=== PATIENT | male | born 1990 | race Two or more races ===

== ENCOUNTER 2020-05-25 19:34 | Emergency (ER) | payer OTHER ==
[~2020-05-25] VITALS: Ht 185.4 cm; Wt 93.0 kg
--- NOTE | 2020-05-25 19:52 | NUR ---
Nurse Note: Pt walked in c/o LT knee pain s/p playing soccer 05/25 around 1800. Pt stated 9/10 pain, with movement. Pt stated he heard a cracking noise on impact. Skin intact. Pt appiled icy-hot but not effective. Pt stated no sensation felt below knee. Pt able to move ankle and toes. Pedial pulses felt on LT foot. Applied ice pack on knee at bedside. All safety measures met; will continue to montior.
--- NOTE | 2020-05-25 19:53 | Emergency Room Report ---
History of Present Illness General Chief Complaint: Lower Extremity Injury Source: Patient Present Illness HPI Disclaimer: Please note that this report is being documented using NimbitON technology. This can lead to erroneous entry secondary to incorrect interpretation by the dictating instrument. HPI: 29-year-old male presents for evaluation of left knee left knee pain. Patient collided with other players while playing soccer heard a popping sensation as he went down to the ground. Pain is located over the medial aspect of the left knee. Unable to bear weight. He arrives with crutches. Denies pain in the ankle, foot or hip. No other injuries reported. Prior history of left tibia surgical repair. Has not taken any medication prior to arrival. 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 EOMI. Resp: Normal work of breathing Skin: Intact. No abrasions, laceration or rash over the exposed skin MSK: Normal tone and bulk. Moving all extremities. No obvious deformity. Patella in anatomic position. Tender palpation over the medial aspect of the left knee without significant edema. No overlying skin changes. No tenderness over the lateral aspect. Significant pain elicited with valgus and varus stressing. Unable to perform Argelia test due to patient discomfort. No popliteal mass. 2+ PT and DP pulses distally. Full range of motion in the ankle and foot. No tenderness over the medial or lateral malleoli. Neuro: Awake and alert. Mentating appropriately. Sensation intact over the lower extremity bilaterally. Medical Decision Making Diagnostic Impression: Primary Impression: Knee pain ER Course 29-year-old male presents for evaluation of left knee pain after an injury playing soccer. Concern for fracture, dislocation, ligamentous strain, ligamentous sprain, meniscal injury. Patient is neurovascularly intact. X-rays do not show acute bony injury. Patient was placed in a knee immobilizer. Concern for ligamentous or meniscal injury. Patient will follow up with orthopedic surgery for advanced imaging and further work-up as needed. Prescribed pain medication and provided with crutches that are his size. Stable for outpatient follow-up. Instructed to return with new or worsening symptoms. Other X-Ray Diagnostic Results Other X-Ray Diagnostic Results : X-Ray ordered: Left knee # of Views/Limited Vs Complete: 2 View Indication: Pain EP Interpretation: Yes Interpretation: no dislocation, no soft tissue swelling, no fractures Impression: No acute disease Electronically Signed by: Electronically signed by Dr. Alfa Cooney MD Last Vital Signs Date Time Temp Pulse Resp B/P (MAP) Pulse Ox O2 Delivery O2 Flow Rate FiO2 05/25/20 19:38 98.1 87 16 114/66 (82) 98 Room Air Disposition: HOME, SELF-CARE Condition: Stable Scripts Hydrocodone Bit/Acetaminophen 5-325* (NORCO 5-325 TABLET*) 1 Each Tablet 1 TAB ORAL Q6H PRN for FOR PAIN, #10 TAB 0 Refills Prov: Alfa Cooney MD 05/25/20 Ibuprofen* (MOTRIN*) 600 Mg Tablet 600 MG ORAL Q6H PRN for For Pain, #30 TAB 0 Refills Prov: Alfa Cooney MD 05/25/20 Alfa Cooney MD May 25, 2020 19:53
[2020-05-25] MEDS ORDERED: Morphine Sulfate 2mg/ml Inj(IV/IM USE ONLY) IVP ONE (20:00)
--- NOTE | 2020-05-25 20:03 | NUR ---
Nurse Note: radiology at bedside.
--- NOTE | 2020-05-25 20:40 | NUR ---
ED Nurse Note: patient placed in knee immobilizer and instructed on how to use crutches with pt return demonstration.
[2020-05-25] MEDS ORDERED: IBUPROFEN600 M1 ORAL (20:41)
[2020-05-25] MEDS ORDERED: NORCO 5-325 TA1 EAC1 ORAL (20:41)
--- NOTE | 2020-05-25 20:42 | Diagnostic Imaging Report ---
EXAM: XR Left Knee, 3 Views CLINICAL HISTORY: INJ TECHNIQUE: Three views of the left knee. COMPARISON: No relevant prior studies available. FINDINGS: Negative for acute fracture or dislocation. Lucent defects distal tibia and proximal fibula likely from prior ACL repair. Consider MRI for evaluation of the soft tissue structures.
[2020-05-25 21:00] VITALS: BP 115/70
--- NOTE | 2020-05-25 21:00 | NUR ---
ER DISCHARGE NOTE: Patient is cleared to be discharged per ERMD, pt is aox4, on room air, with stable vital signs. pt was given dc and prescription instructions, pt was able to verbalize understanding, pt id band removed. pt is able to ambulate with steady gait. pt took all belongings.
== END 2020-05-25 21:00 | disposition home or self-care (01) ==
LOC: EMR 20:30
DX: M25.562 Pain in left knee (principal)
CPT/HCPCS: 73562; 96374; 99283; J2270

== ENCOUNTER 2020-06-01 10:41 | Emergency (ER) | payer OTHER ==
[~2020-06-01] VITALS: Ht 182.9 cm; Wt 87.5 kg
[~2020-06-01 10:41] MED LIST: IBUPROFEN600 M1 ORAL; NORCO 5-325 TA1 EAC1 ORAL
[2020-06-01 10:59] VITALS: BP 116/72
--- NOTE | 2020-06-01 10:59 | NUR ---
ED Nurse Note: Pt walked in to ED from home c/o mid sternal pressure x few months. Per pt, he has been eating meat for [employer] holiday. Pt has been taking Omeprazole. Denies n/v/d. Afebrile. No SOB, on room air. ERMD at bedside.
[2020-06-01] MEDS ORDERED: PRILOSEC OTC20 MG ORAL (11:22)
[2020-06-01 11:29] VITALS: BP 121/72
--- NOTE | 2020-06-01 11:29 | NUR ---
ED Nurse Note: Pt cleared by ERMD for discharge. DC instructions/prescription was given and explained to pt and verbalized understanding of teachings. All medical deviecs such as ID band removed. Pt is AAO x4, ambulatory and left with all personal belongings.
[2020-06-01] MEDS ORDERED: Mylanta II UD 30ml ORAL ONE (11:30)
[2020-06-01] MEDS ORDERED: Lidocaine 2% Visc 15ml soln ORAL ONE (11:30)
[2020-06-01] MEDS ORDERED: Dicyclomine HCl 10mg/5ml oral soln ORAL ONE (11:30)
--- NOTE | 2020-06-01 14:39 | Emergency Room Report ---
History of Present Illness General Chief Complaint: General Complaint Source: Patient Present Illness HPI Disclaimer: Please note that this report is being documented using PostachioON technology. This can lead to erroneous entry secondary to incorrect interpretation by the dictating instrument. HPI: This is a 29-year-old male presents with epigastric and mid chest discomfort. Symptoms chronic over the past month. No nausea no vomiting. He has a history of GERD. He states he has been eating a lot of meat recently. He frequently gets an acid taste in his mouth. He has not followed up with his primary doctor or GI for this issue. He currently takes Prilosec i ntermittently. Allergies: Coded Allergies: No Known Allergies (Unverified , 05/25/20) COVID-19 Screening Contact w/high risk pt: No Experienced COVID-19 symptoms?: No COVID-19 Testing performed MANAGER TRADE: No Patient History Reviewed Nursing Documentation: PMH: Agreed; PSxH: Agreed Nursing Documentation-PMH Past Medical History: No History, Except For Review of Systems All Other Systems: negative except mentioned in HPI Physical Exam Vital Signs Date Time Temp Pulse Resp B/P (MAP) Pulse Ox O2 Delivery O2 Flow Rate FiO2 06/01/20 10:45 97.9 55 19 116/72 (87) 100 Room Air Sp02 EP Interpretation: reviewed, normal General Appearance: well appearing, no apparent distress Head: normocephalic, atraumatic Eyes: bilateral eye PERRL, bilateral eye EOMI ENT: hearing grossly normal, moist mucus membranes Neck: full range of motion, supple Respiratory: lungs clear, normal breath sounds, no rhonchi, no respiratory distress, no retraction, no wheezing Cardiovascular #1: normal peripheral pulses, regular rate, rhythm, no murmur Gastrointestinal: non tender, soft, non-distended, no guarding Neurologic: alert, oriented x3, no focal defects Skin: normal color, warm/dry Medical Decision Making Diagnostic Impression: Primary Impression: GERD (gastroesophageal reflux disease) ER Course MDM: Differential included but not limited to GERD, gastritis, less likely ACS. Patient has had chronic GERD-like symptoms for over 3 to 4 months. He does not take his medications consistently. He currently actively smokes. And eats an unhealthy diet. Today I recommended dietary changes, avoiding cigarettes, taking his Prilosec daily. I expressed the importance of establishing primary care and he will need GI referral from his primary care doctor. He was given some follow-up information. He was otherwise nontoxic with a normal exam. And stable for discharge. Last Vital Signs Date Time Temp Pulse Resp B/P (MAP) Pulse Ox O2 Delivery O2 Flow Rate FiO2 06/01/20 11:29 97.9 62 16 121/72 99 Room Air Disposition: HOME, SELF-CARE Condition: Stable Scripts Omeprazole Magnesium (PRILOSEC OTC) 20 Mg Tablet. 20 MG ORAL DAILY, #30 TAB Prov: Santosh Madrid M.D. 06/01/20 Referrals: NOT CHOSEN [facility]/,REFERRING (PCP) Jamal Taveras MD Patient Instructions: Gastroesophageal Reflux Disease, Adult Additional Instructions: Patient is instructed to follow-up with her primary care doctor, primary care clinic or county clinic in 1 to 2 days. Patient instructed to return for any worsening symptoms or concerns. Santosh Madrid M.D. Jun 01, 2020 14:39
== END 2020-06-01 11:30 | disposition home or self-care (01) ==
LOC: EMR 11:10
DX: K21.9 Gastro-esophageal reflux disease without esophagitis (principal); R07.9 Chest pain, unspecified; F17.200 Nicotine dependence, unspecified, uncomplicated
CPT/HCPCS: 99282

== ENCOUNTER 2020-06-17 14:01 | Emergency (ER) | payer OTHER ==
[~2020-06-17] VITALS: Ht 182.9 cm; Wt 92.5 kg
[~2020-06-17 14:01] MED LIST changes: +PRILOSEC OTC20 MG ORAL
[2020-06-17 14:15] VITALS: BP 114/76
--- NOTE | 2020-06-17 14:15 | NUR ---
ED Nurse Note: Pt from home and walked in due to an episode of lightheadedness with cp that resolved. pt relates headache since episode. Noted intermittetn dry coughing. AAO x4, ambulatory.
[2020-06-17] MEDS ORDERED: Acetaminophen 500mg (ES) tab ORAL ONE (14:45)
--- NOTE | 2020-06-17 14:49 | NUR ---
ED Nurse Note: Collected blood and then sent.
[2020-06-17 15:25] LABS: BASOPHILS % (AUTO) 2.2 % (0.0-2.0); EOSINOPHILS % (AUTO) 5.8 % (0.0-3.0); HEMATOCRIT 45.1 % (42.0-52.0); HEMOGLOBIN 15.3 G/DL (14.2-18.0); LYMPHOCYTES % (AUTO) 32.7 % (20.0-45.0); MEAN CORPUSCULAR VOLUME 92 FL (80-99); MONOCYTES % (AUTO) 7.7 % (1.0-10.0); NEUTROPHILS % (AUTO) 51.6 % (45.0-75.0); PLATELET COUNT 205 K/UL (150-450); RED CELL DISTRIBUTION WIDTH 12.2 % (11.6-14.8); WHITE BLOOD COUNT 7.7 K/UL (4.8-10.8)
--- NOTE | 2020-06-17 15:46 | Diagnostic Imaging Report ---
Indication: Chest pain Technique: XRAY Chest 1v Comparison: None Findings: Low lung volumes with expiratory/dependent atelectatic changes at the bases. No focal consolidation. Heart size and mediastinal contours within normal limits. No pleural effusion or pneumothorax. No acute osseous abnormality. IMPRESSION: Low lung volumes with expiratory/dependent atelectatic changes at the bases.
--- NOTE | 2020-06-17 16:00 | NUR ---
ED Nurse Note: Patient's contact# [phone].
[2020-06-17 16:03] LABS: ANION GAP 8 mmol/L (5-15); BLOOD UREA NITROGEN 13 mg/dL (7-18); CALCIUM 8.7 MG/DL (8.5-10.1); CARBON DIOXIDE 25 MMOL/L (21-32); CHLORIDE 105 MMOL/L (98-107); CREATININE 1.1 MG/DL (0.55-1.30); POTASSIUM 3.8 MMOL/L (3.5-5.1); SODIUM 138 MMOL/L (136-145)
[2020-06-17 16:06] VITALS: BP 126/80
--- NOTE | 2020-06-17 16:06 | NUR ---
ED Nurse Note: Patient signed AMA form and states that he needs to leave. Dr Villarreal made aware. No ID band and IV access. Pt is AAO x4, and ambulates with steady gait.
[2020-06-17 16:08] LABS: ALANINE AMINOTRANSFERASE 61 U/L (12-78); ALBUMIN 3.9 G/DL (3.4-5.0); ALBUMIN/GLOBULIN RATIO 1.1 (1.0-2.7); ALKALINE PHOSPHATASE 120 U/L (46-116); ASPARTATE AMINO TRANSFERASE 30 U/L (15-37); BILIRUBIN,TOTAL 0.3 MG/DL (0.2-1.0)
--- NOTE | 2020-06-17 18:15 | Emergency Room Report ---
History of Present Illness General Chief Complaint: Dizziness Source: Patient Present Illness HPI 29-year-old male presents to ED for evaluation. States that earlier today he felt dizzy and he thought his blood pressure was low. States he checked his blood pressure multiple times and lowest was systolic 101. Patient states he felt dizzy for a few minutes and then thought he had some chest pain. Denies any chest pain at this time. Denies any dizziness. Denies any abdominal pain. No other aggravating relieving factors. Denies any other associated symptoms Allergies: Coded Allergies: No Known Allergies (Unverified , 05/25/20) COVID-19 Screening Contact w/high risk pt: No Experienced COVID-19 symptoms?: No COVID-19 Testing performed LEATHER TACKER: No Patient History Past Medical History: GERD Past Surgical History: none Pertinent Family History: none Social History: Denies: smoking, alcohol use, drug use Immunizations: UTD Reviewed Nursing Documentation: PMH: Agreed; PSxH: Agreed Nursing Documentation-PMH Past Medical History: No History, Except For Hx Gastrointestinal Problems: Yes - GERD Review of Systems All Other Systems: negative except mentioned in HPI Physical Exam Vital Signs Date Time Temp Pulse Resp B/P (MAP) Pulse Ox O2 Delivery O2 Flow Rate FiO2 06/17/20 14:05 98.4 62 20 107/70 (82) 97 Room Air Sp02 EP Interpretation: reviewed, normal General Appearance: no apparent distress, alert, GCS 15, non-toxic Head: normocephalic, atraumatic Eyes: bilateral eye normal inspection, bilateral eye PERRL ENT: hearing grossly normal, normal pharynx, no angioedema, normal voice Neck: full range of motion, supple/symm/no masses Respiratory: chest non-tender, lungs clear, normal breath sounds, speaking full sentences Cardiovascular #1: regular rate, rhythm, no edema Cardiovascular #2: 2+ carotid (R), 2+ carotid (L), 2+ radial (R), 2+ radial (L), 2+ dorsalis pedis (R), 2+ dorsalis pedis (L) Gastrointestinal: normal bowel sounds, non tender, soft, non-distended, no guarding, no rebound Rectal: deferred Genitourinary: normal inspection, no CVA tenderness Musculoskeletal: back normal, normal range of motion, gait/station normal, non- tender Neurologic: alert, motor strength/tone normal, oriented x3, sensory intact, responsive, speech normal Psychiatric: judgement/insight normal, memory normal, mood/affect normal, no suicidal/homicidal ideation Reflexes: 3+ bicep (R), 3+ bicep (L), 3+ tricep (R), 3+ tricep (L), 3+ knee (R), 3+ knee (L) Lymphatic: no adenopathy Medical Decision Making Diagnostic Impression: Primary Impression: Dizziness ER Course Hospital Course 29-year-old male presents for chest pain and dizziness. States his BP was low. No symptoms at this time Differential diagnoses include: Rib fracture, TN/unstable angina, contusion, muscle strain Clinical course Patient placed on stretcher. After initial history and physical I ordered labs, EKG, chest x-ray. EKGnormal sinus rhythm no acute ischemic changes interpreted by me X-ray no acute process States he could not wait for his lab results and had to leave. Feels fine at this time. Patient states she wishes to go home. Understands the risks of leaving. Patient has competency to make her own decisions. Signed AMA form. Labs later came up. Troponin negative. Electrolytes okay I. I feel this is a highly complex case requiring extensive working including EKG/Rhythm strip, Xray/CT/US, Blood/urine lab work, repeat exams while in ED, and administration of strong opiates/narcotics for pain control, admission to hospital or close patient follow up. Diagnosis - dizziness patient left AMA Laboratory Tests Test 06/17/20 14:50 White Blood Count 7.7 K/UL (4.8-10.8) Red Blood Count 4.90 M/UL (4.70-6.10) Hemoglobin 15.3 G/DL (14.2-18.0) Hematocrit 45.1 % (42.0-52.0) Mean Corpuscular Volume 92 FL (80-99) Mean Corpuscular Hemoglobin 31.2 PG (27.0-31.0) H Mean Corpuscular Hemoglobin Concent 33.9 G/DL (32.0-36.0) Red Cell Distribution Width 12.2 % (11.6-14.8) Platelet Count 205 K/UL (150-450) Mean Platelet Volume 8.8 FL (6.5-10.1) Neutrophils (%) (Auto) 51.6 % (45.0-75.0) Lymphocytes (%) (Auto) 32.7 % (20.0-45.0) Monocytes (%) (Auto) 7.7 % (1.0-10.0) Eosinophils (%) (Auto) 5.8 % (0.0-3.0) H Basophils (%) (Auto) 2.2 % (0.0-2.0) H Sodium Level 138 MMOL/L (136-145) Potassium Level 3.8 MMOL/L (3.5-5.1) Chloride Level 105 MMOL/L (98-107) Carbon Dioxide Level 25 MMOL/L (21-32) Anion Gap 8 mmol/L (5-15) Blood Urea Nitrogen 13 mg/dL (7-18) Creatinine 1.1 MG/DL (0.55-1.30) Estimat Glomerular Filtration Rate > 60 mL/min (>60) Glucose Level 88 MG/DL (74-106) Calcium Level 8.7 MG/DL (8.5-10.1) Total Bilirubin 0.3 MG/DL (0.2-1.0) Aspartate Amino Transf (AST/SGOT) 30 U/L (15-37) Alanine Aminotransferase (ALT/SGPT) 61 U/L (12-78) Alkaline Phosphatase 120 U/L (46-116) H Troponin I 0.000 ng/mL (0.000-0.056) Total Protein 7.5 G/DL (6.4-8.2) Albumin 3.9 G/DL (3.4-5.0) Globulin 3.6 g/dL Albumin/Globulin Ratio 1.1 (1.0-2.7) EKG Diagnostic Results Troponin ordered: Yes Rate: normal Rhythm: NSR ST Segments: no acute changes ASA given to the pt in ED: No Rhythm Strip Diag. Results EP Interpretation: yes Rhythm: NSR, no PVC's, no ectopy Last Vital Signs Date Time Temp Pulse Resp B/P (MAP) Pulse Ox O2 Delivery O2 Flow Rate FiO2 06/17/20 16:06 97.7 87 17 126/80 99 Room Air Status: improved Disposition: AGAINST MEDICAL ADVICE Condition: Stable Referrals: NOT CHOSEN IPA/,REFERRING (PCP) Liam Villarreal MD Jun 17, 2020 18:15
--- NOTE | 2020-06-19 16:38 | Cardiology Report ---
APPROVED REPORT EKG Measurement Heart [id number] MT 150P-2 [id number] <Conclusion> Sinus bradycardia Otherwise normal ECG
== END 2020-06-17 16:06 | disposition left against medical advice (07) ==
LOC: EMR 14:30
DX: R42 Dizziness and giddiness (principal); R07.9 Chest pain, unspecified; K21.9 Gastro-esophageal reflux disease without esophagitis
CPT/HCPCS: 36415; 71045; 80053; 84484; 85025; 93005; 96360; 99284; J7030

== ENCOUNTER 2020-07-13 16:54 | Emergency (ER) | payer OTHER ==
[~2020-07-13] VITALS: Ht 172.7 cm; Wt 90.7 kg
--- NOTE | 2020-07-13 17:05 | NUR ---
ED Nurse Note: Pt walked in to ED with crutches c/o left ankle pain after twisting after an exercise x40 mins ago. Per pt, he heard a popping sound. AAOx4, verbally responsive. no SOB. ERPA at bedside.
--- NOTE | 2020-07-13 17:17 | NUR ---
ED Nurse Note: Xray at bedside.
[2020-07-13] MEDS ORDERED: Methocarbamol 500mg tab ORAL ONE (17:30)
[2020-07-13] MEDS ORDERED: Ketorolac 30mg Inj IM ONE (17:30)
--- NOTE | 2020-07-13 17:30 | NUR ---
ED Nurse Note: Pt refused short posterior splint. ERPA made aware, explained risk, verbally understood.
--- NOTE | 2020-07-13 17:45 | Emergency Room Report ---
History of Present Illness General Chief Complaint: Lower Extremity Injury Source: Patient Present Illness HPI 29-year-old male with no signal past medical history here complaining of left ankle pain after twisting injury earlier today. Rates the pain 10 out of 10 without radiation. Complains of numbness however denies any tingling. Is ambulating to ED with crutches. Denies head injury or loss of consciousness. Patient is neurovascularly intact. Has not taken medication for symptom relief at this time. Reports that due to his type of work he cannot tolerate wearing his splint and is asking for an ankle boot. 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: No Patient History Past Medical History: unable to obtain Past Surgical History: none Pertinent Family History: none Immunizations: UTD Reviewed Nursing Documentation: PMH: Agreed; PSxH: Agreed Nursing Documentation-PMH Hx Gastrointestinal Problems: Yes - GERD Review of Systems All Other Systems: negative except mentioned in HPI Physical Exam Vital Signs Date Time Temp Pulse Resp B/P (MAP) Pulse Ox O2 Delivery O2 Flow Rate FiO2 07/13/20 17:02 98.2 82 18 127/80 (96) 99 Room Air Sp02 EP Interpretation: reviewed, normal General Appearance: normal inspection, alert, no apparent distress, GCS 15 Head: normocephalic, atraumatic Eyes: normal eye exam, PERRL, EOMI, lids + conjunctiva normal, no hyphema, no racoon eyes ENT: normal ENT inspection, TMs + canals normal, oropharynx normal, no crews signs Neck: trach midline, no bony tend, full range of motion without pain Respiratory: effort normal, no retractions, clear to auscultation, chest symmetrical, palpation of chest normal, speaking in full sentences Cardiovascular #2: 2+ dorsalis pedis (R), 2+ dorsalis pedis (L) Musculoskeletal: normal ROM, non-tender, other - Patient is neurovascularly intact, swelling noted left lateral malleolus Skin: no rash Neurologic: normal inspection Psychiatric: judgment & insight normal Procedures Splinting Splinting : Consent: Verbal Location: Left ankle Pre-Made Type: velcro Pre-Proc Neuro Vasc Exam: normal Post-Proc Neuro Vasc Exam: normal Patient Tolerated: Well Complications: None Medical Decision Making PA Attestation All my diagnosis and treatment plans were reviewed ad discussed with my supervising physician Dr. Roa Diagnostic Impression: Primary Impression: Ankle sprain ER Course 29-year-old male with no signal past medical history here complaining of left ankle pain after twisting injury earlier today. Rates the pain 10 out of 10 without radiation. Complains of numbness however denies any tingling. Is ambulating to ED with crutches. Denies head injury or loss of consciousness. Patient is neurovascularly intact. Has not taken medication for symptom relief at this time. Reports that due to his type of work he cannot tolerate wearing his splint and is asking for an ankle boot. Ddx considered but are not limited to: ankle sprain, ankle strain, ankle fracture, ankle contusion Vital signs: are WNL, pt. is afebrile H&PE are most consistent with: ankle sprain ORDERS: ankle X -ray, Motrin, Robaxin ED INTERVENTIONS: Toradol, Robaxin, Tre wrap, patient refused to get splints 10 is reports that cannot work and cannot be excused from work and cannot wear an ankle splint however is requesting ankle boots DISCHARGE: At this time pt. is stable for d/c to home. Will provide printed patient care instructions, and any necessary prescriptions. Care plan and follow up instructions have been discussed with the patient prior to discharge. Patient take medication as directed, follow with primary care provider customer success specialist, advised him to get an ankle boot from the medical supply store, if worsening symptoms return to the emergency room. Patient understands in case there is any ligament tear and not wearing the splint it can become more chronic. Other X-Ray Diagnostic Results Other X-Ray Diagnostic Results : X-Ray ordered: left ankle X-ray # of Views/Limited Vs Complete: 3 View Indication: Pain EP Interpretation: Yes Interpretation: no dislocation, no soft tissue swelling, no fractures Impression: No acute disease Electronically Signed by: Celine Anand PA-C Last Vital Signs Date Time Temp Pulse Resp B/P (MAP) Pulse Ox O2 Delivery O2 Flow Rate FiO2 07/13/20 17:02 98.2 82 18 127/80 (96) 99 Room Air Disposition: HOME, SELF-CARE Condition: Stable Scripts Ibuprofen (Ibu) 800 Mg Tablet 800 MG PO TID, #30 TAB Prov: Celine Contreras 07/13/20 Methocarbamol* (ROBAXIN-500*) 500 Mg Tablet 500 MG ORAL TID PRN for For Pain, #15 TAB 0 Refills Prov: Celine Contreras 07/13/20 Referrals: NOT CHOSEN [facility]/MD,REFERRING (PCP) Patient Instructions: Ankle Sprain Additional Instructions: Patient take medication as directed, follow with primary care provider customer success specialist, advised him to get an ankle boot from the medical supply store, if worsening symptoms return to the emergency room. Patient understands in case there is any ligament tear and not wearing the splint it can become more chronic. Celine Contreras Jul 13, 2020 17:45
[2020-07-13] MEDS ORDERED: IBU800 MG PO (17:46)
[2020-07-13] MEDS ORDERED: ROBAXIN-500MG ORAL (17:46)
[2020-07-13 17:50] VITALS: BP 127/80
--- NOTE | 2020-07-13 17:50 | NUR ---
ED Nurse Note: Pt cleared by ERPA for discharge. DC instructions/prescription was given and explained to pt and verbalized understanding of teachings. All medical deviecs such as ID band removed. Pt is AAO x4, ambulatory and left with all personal belongings.
--- NOTE | 2020-07-14 16:13 | Diagnostic Imaging Report ---
Indication: Trauma, pain Technique: 3 views of the left ankle Comparison: none Findings: No acute fracture. No dislocation. The joint spaces are preserved. Impression: Negative
== END 2020-07-13 17:40 | disposition home or self-care (01) ==
LOC: EMR 17:40
DX: S93.402A Sprain of unspecified ligament of left ankle, initial encounter (principal); X50.1XXA Overexertion from prolonged static or awkward postures, initial encounter; Y92.9 Unspecified place or not applicable; K21.9 Gastro-esophageal reflux disease without esophagitis
CPT/HCPCS: 29515; 73610; 96372; 99283; J1885

== ENCOUNTER 2020-07-17 18:26 | Emergency (ER) | payer OTHER ==
[~2020-07-17] VITALS: Ht 172.7 cm; Wt 90.7 kg
[~2020-07-17 18:26] MED LIST changes: +IBU800 MG PO; +ROBAXIN-500MG ORAL
[2020-07-17 18:35] VITALS: BP 126/79
[2020-07-17] MEDS ORDERED: Ketorolac 30mg Inj IV ONE (18:45)
[2020-07-17 19:13] LABS: BASOPHILS % (AUTO) 2.1 % (0.0-2.0); EOSINOPHILS % (AUTO) 4.9 % (0.0-3.0); HEMATOCRIT 41.9 % (42.0-52.0); HEMOGLOBIN 14.8 G/DL (14.2-18.0); LYMPHOCYTES % (AUTO) 40.9 % (20.0-45.0); MEAN CORPUSCULAR VOLUME 87 FL (80-99); MONOCYTES % (AUTO) 8.1 % (1.0-10.0); NEUTROPHILS % (AUTO) 43.9 % (45.0-75.0); PLATELET COUNT 259 K/UL (150-450); RED BLOOD COUNT 4.82 M/UL (4.70-6.10); RED CELL DISTRIBUTION WIDTH 12.6 % (11.6-14.8); WHITE BLOOD COUNT 7.7 K/UL (4.8-10.8)
[2020-07-17 19:22] LABS: ANION GAP 6 mmol/L (5-15); BLOOD UREA NITROGEN 15 mg/dL (7-18); CALCIUM 8.6 MG/DL (8.5-10.1); CARBON DIOXIDE 28 MMOL/L (21-32); CHLORIDE 104 MMOL/L (98-107); POTASSIUM 3.8 MMOL/L (3.5-5.1); SODIUM 138 MMOL/L (136-145)
[2020-07-17 19:27] LABS: ALANINE AMINOTRANSFERASE 47 U/L (12-78); ALBUMIN 3.7 G/DL (3.4-5.0); ALKALINE PHOSPHATASE 138 U/L (46-116); ASPARTATE AMINO TRANSFERASE 30 U/L (15-37); BILIRUBIN,TOTAL 0.4 MG/DL (0.2-1.0)
--- NOTE | 2020-07-17 19:34 | Emergency Room Report ---
History of Present Illness General Chief Complaint: Chest Pain Present Illness HPI 29-year-old male with no no signal past medical history here complaining of 2 days of medial sternal chest pain rating a 5 out of 10 without radiation. Denies shortness of breath, cough or congestion, headache and dizziness. Reports that he has history of gastritis and takes his omeprazole every day and reports that this pain is different. Denies tobacco smoke, drug use, alcohol intake. Patient was recently seen in [place] for ankle twisting injury and was diagnosed with ankle sprain. At this time with no suspect DVT or PE. Allergies: Coded Allergies: No Known Allergies (Unverified , 05/25/20) COVID-19 Screening Contact w/high risk pt: No Experienced COVID-19 symptoms?: No COVID-19 Testing performed [employer]: No Patient History Past Medical History: see triage record Past Surgical History: none Pertinent Family History: none Immunizations: UTD Reviewed Nursing Documentation: PMH: Agreed; PSxH: Agreed Nursing Documentation-PMH Hx Gastrointestinal Problems: Yes - GERD Review of Systems All Other Systems: negative except mentioned in HPI Physical Exam Vital Signs Date Time Temp Pulse Resp B/P (MAP) Pulse Ox O2 Delivery O2 Flow Rate FiO2 07/17/20 18:28 98.6 65 16 126/79 (95) 98 Room Air Sp02 EP Interpretation: reviewed, normal General Appearance: no apparent distress, alert, GCS 15, non-toxic Head: normocephalic, atraumatic Eyes: bilateral eye normal inspection, bilateral eye PERRL ENT: hearing grossly normal, normal pharynx, no angioedema, normal voice Neck: full range of motion, supple/symm/no masses Respiratory: chest non-tender, lungs clear, normal breath sounds, no rhonchi, no respiratory distress, no retraction, no accessory muscle use, speaking full sentences Cardiovascular #1: regular rate, rhythm, no edema, no JVD Cardiovascular #2: 2+ carotid (R), 2+ carotid (L), 2+ radial (R), 2+ radial (L), 2+ dorsalis pedis (R), 2+ dorsalis pedis (L) Gastrointestinal: soft Genitourinary: no CVA tenderness Musculoskeletal: back normal, no calf tenderness Neurologic: alert, motor strength/tone normal, oriented x3, sensory intact, responsive, speech normal Psychiatric: judgement/insight normal, memory normal, mood/affect normal, no suicidal/homicidal ideation Skin: no rash Lymphatic: no adenopathy Medical Decision Making PA Attestation ALL Diagnosis and treatment plan reviewed and discussed with my supervising physician Dr. Madrid Diagnostic Impression: Primary Impression: Chest pain ER Course 29-year-old male with no no signal past medical history here complaining of 2 days of medial sternal chest pain rating a 5 out of 10 without radiation. Denies shortness of breath, cough or congestion, headache and dizziness. Reports that he has history of gastritis and takes his omeprazole every day and reports that this pain is different. Denies tobacco smoke, drug use, alcohol intake. Patient was recently seen in [place] [facility] for ankle twisting injury and was diagnosed with ankle sprain. At this time with no suspect DVT or PE. Ddx considered but are not limited to: DC, Angina, COPD, GERD, Vital signs: are WNL, pt. is afebrile H&PE are most consistent with chest pain ORDERS: CXR, EKG, troponin, CBC, CMp, UA, tylenol, pepcid ED INTERVENTIONS:pepcid, toradol DISCHARGE: At this time pt. is stable for d/c to home. Will provide printed patient care instructions, and any necessary prescriptions. Care plan and follow up instructions have been discussed with the patient prior to discharge. Take medication as directed, follow primary care provider for possible referral to historical interpreter, if worsening symptoms return to the emergency room EKG Diagnostic Results Rate: bradycardiac Rhythm: other - Slightly bradycardic ST Segments: no acute changes Other Impression No acute ST changes ASA given to the pt in ED: No Chest X-Ray Diagnostic Results Chest X-Ray Diagnostic Results : Chest X-Ray Ordered: Yes # of Views/Limited/Complete: 1 View Indication: Chest Pain EP Interpretation: Yes PA Xray: Interpretation reviewed, by supervising MD, and agrees with findings. Interpretation: no consolidation, no effusion, no pneumothorax, no acute cardiopulmonary disease Impression: No acute disease Electronically Signed by: Celine Anand PA-C Last Vital Signs Date Time Temp Pulse Resp B/P (MAP) Pulse Ox O2 Delivery O2 Flow Rate FiO2 07/17/20 18:35 98.6 65 16 126/79 98 Room Air Disposition: HOME, SELF-CARE Condition: Stable Scripts Famotidine* (Pepcid 20mg tablet*) 20 Mg Tablet 20 MG ORAL DAILY for Gerd, #30 TAB 0 Refills Prov: Celine Contreras 07/17/20 Acetaminophen* (TYLENOL EXTRA STRENGTH*) 500 Mg Tablet 500 MG ORAL Q8H PRN for Prn Headache/Temp > 101, #30 TAB 0 Refills Prov: Celine Contreras 07/17/20 Referrals: NOT CHOSEN IPA/MD,REFERRING (PCP) Patient Instructions: Nonspecific Chest Pain Additional Instructions: Take medication as directed, follow primary care provider, you may need to be sent to a historical interpreter, if worsening symptoms return to the emergency room Celine Contreras Jul 17, 2020 19:34
[2020-07-17] MEDS ORDERED: FAMOTIDINE20 MG ORAL (19:35)
[2020-07-17] MEDS ORDERED: TYLENOL EXTRA500 MG ORAL (19:35)
--- NOTE | 2020-07-17 19:36 | Diagnostic Imaging Report ---
EXAM: XR Chest, 1 View CLINICAL HISTORY: PAIN TECHNIQUE: Frontal view of the chest. COMPARISON: 06/17/2020. FINDINGS: Lungs: Unremarkable. No consolidation. Pleural space: Unremarkable. No pneumothorax. Heart: Unremarkable. No cardiomegaly. Mediastinum: Unremarkable. Bones/joints: Unremarkable. IMPRESSION: No acute cardiopulmonary disease.
[2020-07-17 19:40] VITALS: BP 122/81
== END 2020-07-17 19:40 | disposition home or self-care (01) ==
LOC: EMR 18:48
DX: R07.9 Chest pain, unspecified (principal); K21.9 Gastro-esophageal reflux disease without esophagitis; Z79.899 Other long term (current) drug therapy
CPT/HCPCS: 36415; 71045; 80053; 80307; 84484; 85025; 93005; 96374; 96375; 99284; J1885; J2405; S0028